=== PATIENT | male | born 1955 | race Caucasian/White ===

== ENCOUNTER 2020-01-14 12:35 | Outpatient (CLI) | payer BC ==
--- NOTE | 2020-01-14 16:58 | RAD ---
THREE VIEWS RIGHT SHOULDER: History: Fall, pain. FINDINGS: Mild degenerative changes of the acromioclavicular joint space. Glenohumeral joint space is preserved . No fracture or dislocation. IMPRESSION: 1. No fracture or dislocation. 2. Mild degenerative change of the acromioclavicular joint space. POS: PPP
--- NOTE | 2020-01-15 07:37 | RAD ---
RIGHT CLAVICLE AND LEFT CLAVICLE 2 VIEWS: History: Evaluate for AC joint separation. FINDINGS: Two views of the right clavicle performed with and without weights. No significant change in joint sp rebecca distance. There is moderate degenerative change. Two views of the left clavicle performed with and without weights. No significant change in joint spa ce distance. Chronic degenerative changes are noted. Sclerotic focus with peripheral lucencies noted in the proximal left humerus, incompletely evaluated IMPRESSION: 1. No significant joint space distance with the patient holding weights. There are degenerative conteh ges in both AC joints. 2. Nonspecific lucent focus with sclerotic margin in the proximal left humerus, incompletely evaluat ed. Dedicated left humeral radiograph is recommended. Code T POS: PPP
== END 2020-01-14 12:36 | disposition home or self-care (01) ==
LOC: BICRAD 12:35
PROVIDERS: ATTEND Family Medicine
DX: S43.401A Unspecified sprain of right shoulder joint, initial encounter (principal); M19.011 Primary osteoarthritis, right shoulder; M19.012 Primary osteoarthritis, left shoulder; R93.7 Abnormal findings on diagnostic imaging of other parts of musculoskeletal system
CPT/HCPCS: 73050

== ENCOUNTER 2022-03-03 08:45 | Outpatient (CLI) | payer BC | END 2022-03-03 08:46 | disposition home or self-care (01) | LOC: BICRAD 08:45 | PROVIDERS: ATTEND Nurse Practitioner Family | DX: M25.551 Pain in right hip (principal) | CPT/HCPCS: 72170 ==

== ENCOUNTER 2023-06-21 17:00 | Outpatient (CLI) | payer BC | END 2023-06-21 17:01 | disposition home or self-care (01) | LOC: SLEEPLAB 17:00 | PROVIDERS: ATTEND Internal Medicine Critical Care Medicine | DX: G47.33 Obstructive sleep apnea (adult) (pediatric) (principal); R53.83 Other fatigue; R06.83 Snoring; G47.61 Periodic limb movement disorder | CPT/HCPCS: 95811 ==

== ENCOUNTER 2023-10-06 15:31 | Outpatient (CLI) | payer BC | END 2023-10-06 15:32 | disposition home or self-care (01) | LOC: ULT 15:31 | PROVIDERS: ATTEND Family Medicine | DX: I42.8 Other cardiomyopathies (principal); I08.1 Rheumatic disorders of both mitral and tricuspid valves | CPT/HCPCS: 93306 ==

== ENCOUNTER 2024-07-23 15:20 | Outpatient (CLI) | payer BC | END 2024-07-23 15:21 | disposition home or self-care (01) | LOC: BICCT 15:20 | PROVIDERS: ATTEND Student in an Organized Health Care Education/Training Program | DX: K46.9 Unspecified abdominal hernia without obstruction or gangrene (principal); R19.09 Other intra-abdominal and pelvic swelling, mass and lump; N28.1 Cyst of kidney, acquired; N40.0 Benign prostatic hyperplasia without lower urinary tract symptoms; K57.30 Diverticulosis of large intestine without perforation or abscess without bleeding | CPT/HCPCS: 71250; 74177 ==

== ENCOUNTER 2025-06-12 16:44 | Outpatient (CLI) | payer BC | END 2025-06-12 16:45 | disposition home or self-care (01) | LOC: RAD 16:44 | PROVIDERS: ATTEND Family Medicine | DX: R20.2 Paresthesia of skin (principal); M47.812 Spondylosis without myelopathy or radiculopathy, cervical region | CPT/HCPCS: 72040 ==